=== PATIENT | male | born 1945 | race Caucasian/White ===

== ENCOUNTER 2017-05-09 16:04 | Emergency (ER) | payer MEDICARE, BC ==
--- NOTE | 2017-05-09 16:28 | EDM.PDOC ---
ED HPI GENERAL MEDICAL PROBLEM - General Chief Complaint: Trauma Stated Complaint: CUT L HAND Time Seen by Provider: 05/09/17 16:05 Source of Information: Reports: Patient, EMS Notes Reviewed History Limitations: Reports: No Limitations - History of Present Illness INITIAL COMMENTS - FREE TEXT/NARRATIVE: Mary comes to [facility] ED by EMS following an injury to L hand obtained while using a circular saw. There is a dorsal wound with some active bleeding, and inability to extend the L 5th digit. There is no loss of sensation, and no other apparent injury. His tetanus vax status post-7 years needs updating. - Related Data Allergies Allergy/AdvReac Type Severity Reaction Status Date / Time No Known Allergies Allergy Verified 05/09/17 16:48 Home Meds: Home Meds Losartan [Cozaar] 50 mg PO DAILY 05/09/17 [History] Omeprazole [Omeprazole] 20 mg PO DAILY 05/09/17 [History] amLODIPine [Norvasc] 5 mg PO DAILY 05/09/17 [History] Past Medical History Cardiovascular History: Reports: Hypertension Review of Systems - Review of Systems Review Of Systems: ROS reveals no pertinent complaints other than HPI. ED EXAM, GENERAL - Physical Exam Exam: See Below Exam Limited By: No Limitations General Appearance: Alert, WD/WN, Mild Distress Head: Atraumatic, Normocephalic Neck: Normal Inspection, Supple, Non-Tender, Full Range of Motion Respiratory/Chest: Lungs Clear, Normal Breath Sounds Cardiovascular: Regular Rate, Rhythm Back Exam: Normal Inspection Extremities: Other (L hand: jagged dorsal laceration with exposed tendons, and apparent laceration of extensor digiti minimi; the abductor digiti minimi appears intact and function; ) Neurological: Alert, Oriented, CN II-XII Intact, No Motor/Sensory Deficits Psychiatric: Normal Affect, Normal Mood Skin Exam: Warm, Dry, Wound/Incision (L hand) Lymphatic: No Adenopathy Course - Vital Signs Text/Narrative:: Case was discussed with Dr. Leonardo, framing specialist in [place], [place], and he will tranfer by POV for surgical management. - Orders/Labs/Meds Orders: Active Orders 24 hr Category Date Time Status Vaccines to be Administered [RC] PER UNIT ROUTINE Care 05/09/17 16:38 Active Meds: Medications Discontinued Medications Generic Name Dose Route Start Last Admin Trade Name Freq PRN Reason Stop Dose Admin Ceftriaxone Sodium 1,000 mg 05/09/17 16:37 05/09/17 16:55 Rocephin IM 05/09/17 16:38 1,000 mg ONETIME ONE Administration Diphtheria/Tetanus/Acell Pertussis 0.5 ml 05/09/17 16:38 05/09/17 16:55 Adacel IM 05/09/17 16:39 0.5 ml .ONCE ONE Administration Departure - Departure Time of Disposition: 16:35 Disposition: DC/Tfer to Other 70 Condition: Fair Clinical Impression: Hand trauma Qualifiers: Encounter type: initial encounter Laterality: left Qualified Code(s): S69.92XA - Unspecified injury of left wrist, hand and finger(s), initial encounter - Discharge Information Referrals: Osito Puga MD [Primary Care Provider] - Forms: ED Department Discharge - Problem List & Annotations (1) Hand trauma SNOMED Code(s): 746776074 Code(s): S69.90XA - UNSP INJURY OF UNSP WRIST, HAND AND FINGER(S), INIT ENCNTR Status: Acute Current Visit: Yes Annotation/Comment:: Wound irrigated, redressed, Tdap booster and Rocephin 1 gm IM administered prior to transfer. Qualifiers: Encounter type: initial encounter Laterality: left Qualified Code(s): S69.92XA - Unspecified injury of left wrist, hand and finger(s), initial encounter - Problem List Review Problem List Initiated/Reviewed/Updated: Yes - My Orders Last 24 Hours: My Active Orders 05/09/17 16:38 Vaccines to be Administered [RC] PER UNIT ROUTINE - Assessment/Plan Last 24 Hours: My Active Orders 05/09/17 16:38 Vaccines to be Administered [RC] PER UNIT ROUTINE Plan: Per Dr. Nation, documentation consultant.
[2017-05-09] MEDS ORDERED: cefTRIAXone 1,000 MG VIAL IM ONE (16:37)
[2017-05-09] MEDS ORDERED: Diphtheria,Pertussis(Acell),Tetanus Vaccine 0.5 ML SDV IM ONE (16:38)
[2017-05-09 20:15] VITALS: BP 138/99
== END 2017-05-09 17:15 | disposition other institution (70) ==
LOC: FB.ED 16:04
DX: S61.412A Laceration without foreign body of left hand, initial encounter (principal); I10 Essential (primary) hypertension; Z79.899 Other long term (current) drug therapy; W31.2XXA Contact with powered woodworking and forming machines, initial encounter; Z23 Encounter for immunization
CPT/HCPCS: 90471; 90715; 96372; 99284; A4217; J0696; 16020